=== PATIENT | female | born 1950 | race Caucasian/White ===

== ENCOUNTER 2017-01-21 15:03 | Emergency (ER) | payer MEDICARE ==
--- NOTE | 2017-01-21 15:23 | UC ---
Syncope/New Syncope HPI - HPI Summary HPI Summary: 66 yo female with HTN and DM [place] outdoor [place]. Was in the sun for about 3 hours [place] weak and sat down Slump over into husbands arms and was out for 30 seconds Came to and has felt a little weak Declined EMS transfer at event and came here for evaluation noCP or SOB no diaphoresis - History Of Current Complaint Chief Complaint: UCGeneralIllness Stated Complaint: PASSED OUT Time Seen by Provider: 01/21/17 15:04 Hx Obtained From: Patient Onset/Duration: Sudden Onset, Other - lasted 30s Timing: Seconds Frequency: Episodes x___ - 1, Episodes Lasting ____ (in Mins/Days/Weeks/Years) - 30s Context: Witnessed Associated Head Trauma: No Pain Intensity: 0 Pain Scale Used: 0-10 Numeric Aggravating Factor(s): Other - heat Alleviating Factor(s): Spontaneous Resolution, Rest Associated Signs And Symptoms: Positive: Dizzy, Vomiting - x 1 after event - Risk Factors Cardiac Risk Factors: Hypertension, Diabetes, Family History - Allergies/Home Medications Allergies/Adverse Reactions: Allergies Allergy/AdvReac Type Severity Reaction Status Date / Time Ampicillin Allergy Rash Verified 08/04/13 14:44 Home Medications: Home Medications Atorvastatin* [Lipitor*] 10 mg PO DAILY 01/21/17 [History Confirmed 01/21/17] Ibandronate Sodium 150 mg PO MONTHLY 01/21/17 [History Confirmed 01/21/17] Irbesartan (NF) [Avapro (NF)] 150 mg PO DAILY 01/21/17 [History Confirmed ] Omeprazole 40 mg PO DAILY 01/21/17 [History Confirmed 01/21/17] metFORMIN* [Glucophage 500 MG TAB *] 250 mg PO BID 01/21/17 [History Confirmed 01/21/17] PMH/Surg Hx/FS Hx/Imm Hx Previously Healthy: Yes Endocrine History: Diabetes Cardiovascular History: Hypertension - Surgical History Surgical History: Yes Surgery Procedure, Year, and Place: [id number]. T&A - Family History Known Family History: Positive: Cardiac Disease, Hypertension, Diabetes, Renal Disease - Social History Alcohol Use: None Substance Use Type: None Smoking Status (MU): Never Smoked Tobacco Review of Systems Constitutional: Fatigue Skin: Negative Eyes: Negative ENT: Negative Respiratory: Negative Cardiovascular: Negative Gastrointestinal: Negative Genitourinary: Negative Motor: Negative Neurovascular: Negative Musculoskeletal: Negative Neurological: Negative Psychological: Negative Is Patient Immunocompromised?: No All Other Systems Reviewed And Are Negative: Yes Physical Exam Triage Information Reviewed: Yes Appearance: Well-Appearing, No Pain Distress, Well-Nourished Vital Signs: Initial Vital Signs Temp 98.1 F 01/21/17 15:12 Pulse 125 01/21/17 15:12 Resp 18 01/21/17 15:12 BP 152/80 01/21/17 15:12 Pulse Ox 97 01/21/17 15:12 Vital Signs Reviewed: Yes Eyes: Positive: Conjunctiva Clear ENT: Positive: Hearing grossly normal. Negative: Nasal congestion, Nasal drainage, Trismus, Muffled/hoarse voice Neck: Positive: Supple, Nontender, No Lymphadenopathy Respiratory: Positive: Lungs clear, Normal breath sounds, No respiratory distress, No accessory muscle use Cardiovascular: Positive: RRR, No Murmur, Tachycardia Abdomen Description: Positive: Nontender, Soft Bowel Sounds: Positive: Present Musculoskeletal: Positive: ROM Intact, No Edema Neurological: Positive: Alert Psychological Exam: Normal Skin Exam: Normal Diagnostics - Laboratory Diagnostic Studies Completed/Ordered: [id number] - EKG Cardiac Rate: Tachycardia Cardiac Rhythm: Sinus: Normal Ectopy: None ST Segment: Normal Syncope Course/Dx - Course Course Of Treatment: D/W Shanthi Carballo NP at [facility]- accepts pt. She refuses EMS transfer. AMA signed for that reason - Differential Dx/Diagnosis Provider Diagnoses: Syncopal episode. tachycardia Discharge - Discharge Plan Condition: Guarded Disposition: TRANS HIGHER L OF CARE FAC
[2017-01-21 15:43] VITALS: BP 122/74
== END 2017-01-21 15:47 | disposition short-term general hospital (02) ==
LOC: UCCORT 15:03
DX: R55 Syncope and collapse (principal); R00.0 Tachycardia, unspecified; R11.10 Vomiting, unspecified; E11.9 Type 2 diabetes mellitus without complications; Z79.84 Long term (current) use of oral hypoglycemic drugs; I10 Essential (primary) hypertension
CPT/HCPCS: 93005; 99212; G0463